=== PATIENT | male | born 1955 ===

== ENCOUNTER 2021-07-24 09:45 | Inpatient (IN) ==
[2021-07-24] MEDS ORDERED: Albuterol HFA INHALER 8 gm MDI INH PRN (13:23)
[2021-07-24] MEDS ORDERED: Furosemide 40 mg/4 ml IV VIAL IV SLOW PU ONE (13:29)
[2021-07-24] MEDS: cefTRIAXone 1 gm/50 mL NS BAG 1 GM/50 ML BAG IVPB SCH (14:02)
[2021-07-24] MEDS: Carbidopa/Levodop 25/100 MG TAB PO SCH ×2 (14:02→21:04)
[2021-07-24 15:08] LABS: ABS Lymphocytes 0.2 10^3/ul (1.0-4.8); ABS Monocytes 0.3 10^3/ul (0-0.8); ABS Neutrophils 5.2 10^3/ul (1.5-7.7); Hematocrit 41 % (42-52); Mean Corpuscular HGB Conc 34 g/dL (31-36); Mean Corpuscular Hemoglobin 32 pg (27-31); Mean Corpuscular Volume 95 fL (80-94); Mean Platelet Volume 8.3 fL (7.4-10.4); Platelet Count 156 10^3/uL (150-450); Red Blood Count 4.38 10^6 /uL (4.18-5.48); Red Cell Distribution Width 15 % (10-15); White Blood Count 5.8 10^3/uL (3.5-10.8)
[2021-07-24 15:24] LABS: Albumin/Globulin Ratio 1.2 (1-3); Calcium 7.6 mg/dL (8.6-10.3); Globulin 2.6 g/dL (2-4); Phosphorus 4.2 mg/dL (2.5-5.0); Total Bilirubin 0.9 mg/dL (0.2-1.0); Total Protein 5.6 g/dL (6.4-8.9)
[2021-07-24] MEDS: Heparin 5000 UNITS/ML 1 mL VIAL SUBCUT SCH (21:23)
[2021-07-24] MEDS ORDERED: Senna TAB 8.6 mg TAB PO PRN (23:05)
[2021-07-24] MEDS ORDERED: Polyethylene Glycol 3350 17 GM PACKET PO PRN (23:05)
[2021-07-24] MEDS ORDERED: Magnesium Hydroxide LIQ 30 ML UDC PO PRN (23:05)
[2021-07-25] MEDS: Heparin 5000 UNITS/ML 1 mL VIAL SUBCUT SCH ×3 (05:42→22:00)
[2021-07-25 06:07] LABS: Hematocrit 39 % (42-52); Hemoglobin 13.5 g/dL (14.0-18.0); Mean Corpuscular HGB Conc 35 g/dL (31-36); Mean Corpuscular Hemoglobin 33 pg (27-31); Mean Corpuscular Volume 94 fL (80-94); Mean Platelet Volume 8.6 fL (7.4-10.4); Platelet Count 153 10^3/uL (150-450); Red Blood Count 4.15 10^6 /uL (4.18-5.48); Red Cell Distribution Width 15 % (10-15); White Blood Count 9.3 10^3/uL (3.5-10.8)
[2021-07-25 06:13] LABS: ABS Lymphocytes 0.4 10^3/ul (1.0-4.8); ABS Monocytes 0.5 10^3/ul (0-0.8); ABS Neutrophils 8.2 10^3/ul (1.5-7.7); Lymphocyte % 4.6 %
[2021-07-25 06:26] LABS: Albumin 2.7 g/dL (3.2-5.2); Albumin/Globulin Ratio 1.1 (1-3); Calcium 7.7 mg/dL (8.6-10.3); Globulin 2.5 g/dL (2-4); Total Bilirubin 0.8 mg/dL (0.2-1.0); Total Protein 5.2 g/dL (6.4-8.9); eGFR CKD-EPI 95.2 (>60)
[2021-07-25] MEDS: Carbidopa/Levodop 25/100 MG TAB PO SCH ×3 (09:15→19:38)
[2021-07-25] MEDS: Remdesivir 100 mg Vial 100 MG in NS 0.9% 250 ml 230 ML IV SCH (09:28)
[2021-07-25] MEDS ORDERED: Furosemide 40 mg/4 ml IV VIAL IV SLOW PU ONE (10:53)
[2021-07-25] MEDS: cefTRIAXone 1 gm/50 mL NS BAG 1 GM/50 ML BAG IVPB SCH (15:39)
[2021-07-26] MEDS: Heparin 5000 UNITS/ML 1 mL VIAL SUBCUT SCH ×3 (05:57→22:41)
[2021-07-26] MEDS: Carbidopa/Levodop 25/100 MG TAB PO SCH ×3 (10:09→19:53)
[2021-07-26] MEDS: Remdesivir 100 mg Vial 100 MG in NS 0.9% 250 ml 230 ML IV SCH (10:13)
[2021-07-26] MEDS: Furosemide 40 mg/4 ml IV VIAL IV SCH (11:01)
[2021-07-26] MEDS ORDERED: Acetylcysteine 600mgCAP(RENAL) ONE (11:05)
[2021-07-26] MEDS: Acetylcysteine 600mgCAP(RENAL) PO SCH ×2 (11:06→22:41)
[2021-07-26 11:08] LABS: Albumin 2.9 g/dL (3.2-5.2); Albumin/Globulin Ratio 1.1 (1-3); Globulin 2.6 g/dL (2-4); Potassium 4.1 mmol/L (3.5-5.0); Total Bilirubin 0.7 mg/dL (0.2-1.0); Total Protein 5.5 g/dL (6.4-8.9); eGFR CKD-EPI 99.1 (>60)
[2021-07-26] MEDS ORDERED: Morphine 4 MG/ML VIAL (1 ml) IV ONE (11:08)
[2021-07-26 11:11] LABS: INR 1.18 (0.86-1.15)
[2021-07-26 14:04] LABS: Urine Appearance Clear; Urine Bilirubin Negative (Negative); Urine Blood Negative (Negative); Urine Color Yellow; Urine Glucose Negative (Negative); Urine Ketones Negative (Negative); Urine Nitrite Negative (Negative); Urine Protein Negative (Negative); Urine Urobilinogen Negative (Negative)
[2021-07-26] MEDS: CMC:Selenium 200 mcg TAB (NF) PO SCH (14:57)
[2021-07-26] MEDS: cefTRIAXone 1 gm/50 mL NS BAG 1 GM/50 ML BAG IVPB SCH (15:55)
[2021-07-27] MEDS: Heparin 5000 UNITS/ML 1 mL VIAL SUBCUT SCH ×3 (05:08→20:07)
[2021-07-27] MEDS: Remdesivir 100 mg Vial 100 MG in NS 0.9% 250 ml 230 ML IV SCH (08:03)
[2021-07-27] MEDS: Furosemide 40 mg/4 ml IV VIAL IV SCH (08:03)
[2021-07-27] MEDS: CMC:Selenium 200 mcg TAB (NF) PO SCH (08:06)
[2021-07-27] MEDS: Acetylcysteine 600mgCAP(RENAL) PO SCH ×2 (08:06→20:07)
[2021-07-27] MEDS: Carbidopa/Levodop 25/100 MG TAB PO SCH ×3 (08:06→20:07)
[2021-07-27] MEDS: cefTRIAXone 1 gm/50 mL NS BAG 1 GM/50 ML BAG IVPB SCH (13:44)
[2021-07-28] MEDS: Heparin 5000 UNITS/ML 1 mL VIAL SUBCUT SCH ×3 (05:49→21:37)
[2021-07-28] MEDS: Carbidopa/Levodop 25/100 MG TAB PO SCH ×3 (08:29→21:36)
[2021-07-28] MEDS: Acetylcysteine 600mgCAP(RENAL) PO SCH ×2 (08:29→21:37)
[2021-07-28] MEDS: Remdesivir 100 mg Vial 100 MG in NS 0.9% 250 ml 230 ML IV SCH (08:32)
[2021-07-28] MEDS: Furosemide 40 mg/4 ml IV VIAL IV SCH (08:32)
[2021-07-28] MEDS: CMC:Selenium 200 mcg TAB (NF) PO SCH (08:52)
[2021-07-28] MEDS: Tiotropium Brom/Olodaterol MDI INH SCH ×2 (11:10→11:50)
[2021-07-28] MEDS: Albuterol/Ipratropium NEB.SOL (2.5/0.5 MG) 3 ML NEB.SOLN INH PRN ×2 (11:52→15:23)
[2021-07-28] MEDS: Sodium Chloride(INHALANT)0.9% 5 ML NEB.SOLN INH SCH ×5 (11:52→23:48)
[2021-07-28 16:37] LABS: Calcium 8.3 mg/dL (8.6-10.3); Magnesium 2.1 mg/dL (1.9-2.7); Potassium 4.8 mmol/L (3.5-5.0); eGFR CKD-EPI 98.7 (>60)
[2021-07-28] MEDS ORDERED: Furosemide 100 mg/10 ml IV VIAL IV ONE (17:09)
[2021-07-29] MEDS ORDERED: Lorazepam PYXIS KEY PRN ×2 (01:35→08:19)
[2021-07-29] MEDS ORDERED: LORazepam 2 mg VIAL 1 ml IV PUSH ONE (01:35)
[2021-07-29] MEDS: Sodium Chloride(INHALANT)0.9% 5 ML NEB.SOLN INH SCH ×7 (03:38→23:31)
[2021-07-29] MEDS: Heparin 5000 UNITS/ML 1 mL VIAL SUBCUT SCH ×3 (06:02→22:00)
[2021-07-29] MEDS ORDERED: Furosemide 100 mg/10 ml IV VIAL IV ONE (08:09)
[2021-07-29] MEDS: Tiotropium Brom/Olodaterol MDI INH SCH (08:10)
[2021-07-29] MEDS ORDERED: LORazepam 2 mg VIAL 1 ml IV PUSH PRN (08:19)
[2021-07-29] MEDS: Acetylcysteine 600mgCAP(RENAL) PO SCH ×2 (08:25→22:24)
[2021-07-29] MEDS: Carbidopa/Levodop 25/100 MG TAB PO SCH ×3 (08:25→22:24)
[2021-07-29] MEDS: CMC:Selenium 200 mcg TAB (NF) PO SCH (08:27)
[2021-07-29 09:10] LABS: Hematocrit 44 % (42-52); Hemoglobin 15.1 g/dL (14.0-18.0); Mean Corpuscular HGB Conc 34 g/dL (31-36); Mean Corpuscular Hemoglobin 32 pg (27-31); Mean Corpuscular Volume 94 fL (80-94); Mean Platelet Volume 9.1 fL (7.4-10.4); Platelet Count 242 10^3/uL (150-450); Red Blood Count 4.71 10^6 /uL (4.18-5.48); Red Cell Distribution Width 15 % (10-15); White Blood Count 9.9 10^3/uL (3.5-10.8)
[2021-07-29 09:26] LABS: Blood Urea Nitrogen 35 mg/dL (6-24); CO2 Carbon Dioxide 34 mmol/L (22-32); Calcium 8.6 mg/dL (8.6-10.3); Chloride 99 mmol/L (101-111); Glucose 193 mg/dL (70-100); Magnesium 2.2 mg/dL (1.9-2.7); Sodium 139 mmol/L (135-145); eGFR CKD-EPI 96.2 (>60)
[2021-07-29] MEDS: Furosemide 40 mg/4 ml IV VIAL IV SCH (11:04)
[2021-07-29 12:34] LABS: Anion Gap 6 mmol/L (2-11)
[2021-07-29] MEDS ORDERED: Furosemide 40 mg/4 ml IV VIAL IV SLOW PU ONE (16:13)
[2021-07-29] MEDS: Senna TAB 8.6 mg TAB PO SCH (21:30)
[2021-07-30] MEDS: Sodium Chloride(INHALANT)0.9% 5 ML NEB.SOLN INH SCH ×3 (04:11→11:50)
[2021-07-30 05:14] LABS: Hematocrit 47 % (42-52); Mean Corpuscular HGB Conc 34 g/dL (31-36); Mean Corpuscular Hemoglobin 32 pg (27-31); Mean Corpuscular Volume 94 fL (80-94); Mean Platelet Volume 9.5 fL (7.4-10.4); Platelet Count 242 10^3/uL (150-450); Red Blood Count 5.02 10^6 /uL (4.18-5.48); Red Cell Distribution Width 15 % (10-15); White Blood Count 7.2 10^3/uL (3.5-10.8)
[2021-07-30 05:52] LABS: CO2 Carbon Dioxide 34 mmol/L (22-32); Calcium 8.7 mg/dL (8.6-10.3); Chloride 99 mmol/L (101-111); Magnesium 2.4 mg/dL (1.9-2.7); Sodium 139 mmol/L (135-145)
[2021-07-30 05:54] LABS: Anion Gap 6 mmol/L (2-11)
[2021-07-30 05:58] LABS: Blood Urea Nitrogen 42 mg/dL (6-24); Glucose 278 mg/dL (70-100); eGFR CKD-EPI 80.1 (>60)
[2021-07-30 06:27] LABS: ABS Lymphocytes 0.3 10^3/ul (1.0-4.8); ABS Monocytes 0.7 10^3/ul (0-0.8); ABS Neutrophils 6.2 10^3/ul (1.5-7.7); Lymphocyte % 4.1 %; Nucleated Red Blood Cells % 0.1
[2021-07-30 06:34] LABS: TSH Ultra Thyroid Stim Horm 0.69 mcIU/mL (0.34-5.60)
[2021-07-30] MEDS: Heparin 5000 UNITS/ML 1 mL VIAL SUBCUT SCH ×3 (07:13→21:49)
[2021-07-30] MEDS: Tiotropium Brom/Olodaterol MDI INH SCH (08:27)
[2021-07-30] MEDS: Carbidopa/Levodop 25/100 MG TAB PO SCH ×3 (09:30→20:11)
[2021-07-30] MEDS: Acetylcysteine 600mgCAP(RENAL) PO SCH ×2 (09:30→20:11)
[2021-07-30] MEDS: Polyethylene Glycol 3350 17 GM PACKET PO SCH (09:31)
[2021-07-30] MEDS: CMC:Selenium 200 mcg TAB (NF) PO SCH (09:31)
[2021-07-30] MEDS: Albuterol/Ipratropium NEB.SOL (2.5/0.5 MG) 3 ML NEB.SOLN INH PRN (11:51)
[2021-07-30 13:23] LABS: Phosphorus 3.5 mg/dL (2.5-5.0); Potassium Redraw 3.8 mmol/L (3.5-5.0)
[2021-07-30] MEDS ORDERED: Sodium Chloride(INHALANT)0.9% 5 ML NEB.SOLN INH PRN (14:58)
[2021-07-30] MEDS: Albuterol/Ipratropium NEB.SOL (2.5/0.5 MG) 3 ML NEB.SOLN INH SCH (18:58)
[2021-07-30] MEDS: Senna TAB 8.6 mg TAB PO SCH (20:12)
[2021-07-31 03:55] LABS: CO2 Carbon Dioxide 30 mmol/L (22-32); Calcium 8.3 mg/dL (8.6-10.3); Chloride 100 mmol/L (101-111); Magnesium 2.5 mg/dL (1.9-2.7); Sodium 135 mmol/L (135-145)
[2021-07-31 03:58] LABS: Anion Gap 5 mmol/L (2-11)
[2021-07-31 04:01] LABS: Blood Urea Nitrogen 43 mg/dL (6-24); Glucose 359 mg/dL (70-100); eGFR CKD-EPI 95.2 (>60)
[2021-07-31] MEDS: Albuterol/Ipratropium NEB.SOL (2.5/0.5 MG) 3 ML NEB.SOLN INH SCH ×3 (05:25→19:40)
[2021-07-31] MEDS: Heparin 5000 UNITS/ML 1 mL VIAL SUBCUT SCH ×2 (06:03→13:20)
[2021-07-31] MEDS: Tiotropium Brom/Olodaterol MDI INH SCH (07:21)
[2021-07-31] MEDS: Polyethylene Glycol 3350 17 GM PACKET PO SCH (08:31)
[2021-07-31] MEDS: Acetylcysteine 600mgCAP(RENAL) PO SCH ×2 (08:31→20:53)
[2021-07-31] MEDS: CMC:Selenium 200 mcg TAB (NF) PO SCH (08:32)
[2021-07-31] MEDS: Carbidopa/Levodop 25/100 MG TAB PO SCH ×3 (08:32→20:54)
[2021-07-31] MEDS: Insulin GLARGINE 100 un/ml 10 ml VIAL SUBCUT SCH (09:07)
[2021-07-31] MEDS: Furosemide 100 mg/10 ml IV VIAL IV SCH (09:07)
[2021-07-31 11:54] LABS: Urine Appearance Clear; Urine Bilirubin Negative (Negative); Urine Blood Negative (Negative); Urine Color Straw; Urine Glucose 1+(50 mg/dL) (Negative); Urine Ketones Negative (Negative); Urine Nitrite Negative (Negative); Urine Protein Negative (Negative); Urine Specific Gravity 1.008 (1.002-1.030); Urine Urobilinogen Negative (Negative)
[2021-07-31] MEDS: Enoxaparin 40 MG/0.4 ML SYR SUBCUT SCH (20:51)
[2021-07-31] MEDS: Senna TAB 8.6 mg TAB PO SCH (20:52)
[2021-08-01] MEDS: Albuterol/Ipratropium NEB.SOL (2.5/0.5 MG) 3 ML NEB.SOLN INH SCH ×3 (03:02→23:13)
[2021-08-01] MEDS: Furosemide 100 mg/10 ml IV VIAL IV SCH (06:29)
[2021-08-01] MEDS: Insulin GLARGINE 100 un/ml 10 ml VIAL SUBCUT SCH (08:00)
[2021-08-01] MEDS: Acetylcysteine 600mgCAP(RENAL) PO SCH ×2 (08:00→20:23)
[2021-08-01] MEDS: CMC:Selenium 200 mcg TAB (NF) PO SCH (08:00)
[2021-08-01] MEDS: Carbidopa/Levodop 25/100 MG TAB PO SCH ×2 (08:00→18:23)
[2021-08-01] MEDS: Tiotropium Brom/Olodaterol MDI INH SCH (08:35)
[2021-08-01 10:55] LABS: PCO2 Arterial 38 mmHg (35-45); PO2 Arterial 64 mmHg (80-100)
[2021-08-01] MEDS: Polyethylene Glycol 3350 17 GM PACKET PO SCH (12:30)
[2021-08-01 12:50] LABS: Blood Urea Nitrogen 47 mg/dL (6-24); CO2 Carbon Dioxide 33 mmol/L (22-32); Chloride 94 mmol/L (101-111); Glucose 411 mg/dL (70-100); Sodium 137 mmol/L (135-145)
[2021-08-01] MEDS ORDERED: Dextrose 50% Syringe 50 ml 25 GM/50 ML SYRINGE IV PUSH PRN ×2 (12:59→13:54)
[2021-08-01 13:23] LABS: Folate 11.53 ng/mL (5.90-24.80)
[2021-08-01 13:24] LABS: Vitamin B12 1017 pg/mL (180-914)
[2021-08-01 13:26] LABS: Glucose Confirmatory 401 mg/dL (70-100)
[2021-08-01 13:34] LABS: Anion Gap 10 mmol/L (2-11)
[2021-08-01 14:43] LABS: TSH Ultra Thyroid Stim Horm 0.48 mcIU/mL (0.34-5.60)
[2021-08-01] MEDS: Senna TAB 8.6 mg TAB PO SCH (20:23)
[2021-08-01] MEDS: Enoxaparin 40 MG/0.4 ML SYR SUBCUT SCH (20:25)
[2021-08-02] MEDS: Albuterol/Ipratropium NEB.SOL (2.5/0.5 MG) 3 ML NEB.SOLN INH SCH ×3 (03:15→19:36)
[2021-08-02 05:45] LABS: PCO2 Arterial 43 mmHg (35-45); PO2 Arterial 109 mmHg (80-100)
[2021-08-02 07:51] LABS: Hematocrit 49 % (42-52); Hemoglobin 16.7 g/dL (14.0-18.0); Mean Corpuscular HGB Conc 34 g/dL (31-36); Mean Corpuscular Hemoglobin 32 pg (27-31); Mean Corpuscular Volume 95 fL (80-94); Mean Platelet Volume 10.2 fL (7.4-10.4); Platelet Count 192 10^3/uL (150-450); Red Blood Count 5.16 10^6 /uL (4.18-5.48); Red Cell Distribution Width 14 % (10-15); White Blood Count 12.5 10^3/uL (3.5-10.8)
[2021-08-02 08:20] LABS: Blood Urea Nitrogen 51 mg/dL (6-24); CO2 Carbon Dioxide 34 mmol/L (22-32); Calcium 9.1 mg/dL (8.6-10.3); Chloride 99 mmol/L (101-111); Glucose 143 mg/dL (70-100); Sodium 140 mmol/L (135-145); eGFR CKD-EPI 94.2 (>60)
[2021-08-02] MEDS: Acetylcysteine 600mgCAP(RENAL) PO SCH ×2 (08:42→21:24)
[2021-08-02] MEDS: Polyethylene Glycol 3350 17 GM PACKET PO SCH (08:43)
[2021-08-02] MEDS: Insulin GLARGINE 100 un/ml 10 ml VIAL SUBCUT SCH (08:43)
[2021-08-02] MEDS: CMC:Selenium 200 mcg TAB (NF) PO SCH (08:45)
[2021-08-02] MEDS: Carbidopa/Levodop 25/100 MG TAB PO SCH ×3 (08:48→18:03)
[2021-08-02 09:51] LABS: Anion Gap 7 mmol/L (2-11)
[2021-08-02] MEDS ORDERED: Furosemide 40 mg/4 ml IV VIAL IV ONE (12:19)
[2021-08-02] MEDS ORDERED: Vancomycin 1,500 MG in NS 0.9% 250 ml 250 ML IVPB ONE (15:32)
[2021-08-02] MEDS ORDERED: Piperacillin/Tazobac ADVAN 3.375 GM in NS 0.9% 100 ml BAG 100 ML IV ONE (15:33)
[2021-08-02] MEDS ORDERED: Vancomycin per Pharmacy 1 EA NOTE FOLLOW UP SCH (16:00)
[2021-08-02] MEDS ORDERED: Zosyn per Pharmacy NOTE FOLLOW UP SCH (16:00)
[2021-08-02] MEDS: Senna TAB 8.6 mg TAB PO SCH (21:24)
[2021-08-02] MEDS: Enoxaparin 40 MG/0.4 ML SYR SUBCUT SCH (21:24)
[2021-08-02] MEDS: ZOSYN 3.375 GM Q8H per EXTENDED INFUSION IV SCH (21:38)
[2021-08-03] MEDS: Vancomycin 1,250 MG in NS 0.9% 250 ml 250 ML IVPB SCH ×2 (04:39→18:52)
[2021-08-03] MEDS: ZOSYN 3.375 GM Q8H per EXTENDED INFUSION IV SCH ×3 (06:03→21:15)
[2021-08-03 06:22] LABS: ABS Basophils 0.1 10^3/ul (0-0.2); ABS Lymphocytes 0.4 10^3/ul (1.0-4.8); ABS Monocytes 1.3 10^3/ul (0-0.8); ABS Neutrophils 11.1 10^3/ul (1.5-7.7); Hematocrit 49 % (42-52); Hemoglobin 16.3 g/dL (14.0-18.0); Mean Corpuscular HGB Conc 33 g/dL (31-36); Mean Corpuscular Hemoglobin 32 pg (27-31); Mean Corpuscular Volume 95 fL (80-94); Mean Platelet Volume 10.3 fL (7.4-10.4); Platelet Count 172 10^3/uL (150-450); Red Blood Count 5.15 10^6 /uL (4.18-5.48); Red Cell Distribution Width 15 % (10-15); White Blood Count 12.9 10^3/uL (3.5-10.8)
[2021-08-03] MEDS: Albuterol/Ipratropium NEB.SOL (2.5/0.5 MG) 3 ML NEB.SOLN INH SCH ×3 (06:22→19:36)
[2021-08-03 07:05] LABS: Calcium 8.5 mg/dL (8.6-10.3); Magnesium 2.5 mg/dL (1.9-2.7)
[2021-08-03 07:11] LABS: eGFR CKD-EPI 75.7 (>60)
[2021-08-03] MEDS: Polyethylene Glycol 3350 17 GM PACKET PO SCH (07:33)
[2021-08-03] MEDS: CMC:Selenium 200 mcg TAB (NF) PO SCH (07:52)
[2021-08-03] MEDS: Insulin GLARGINE 100 un/ml 10 ml VIAL SUBCUT SCH (07:52)
[2021-08-03] MEDS: Acetylcysteine 600mgCAP(RENAL) PO SCH ×2 (07:52→20:38)
[2021-08-03] MEDS: Carbidopa/Levodop 25/100 MG TAB PO SCH ×3 (07:54→18:52)
[2021-08-03] MEDS: Magic MouthWash2-BEN/MAAL/LIDO/NYST 240 ML BTL (alt formulation) SWISH SWAL SCH ×4 (10:36→20:39)
[2021-08-03] MEDS: Senna TAB 8.6 mg TAB PO SCH (20:38)
[2021-08-03] MEDS: Enoxaparin 40 MG/0.4 ML SYR SUBCUT SCH (20:39)
[2021-08-04] MEDS ORDERED: Vancomycin Trough Check NOTE FOLLOW UP ONE (05:30)
[2021-08-04] MEDS: Albuterol/Ipratropium NEB.SOL (2.5/0.5 MG) 3 ML NEB.SOLN INH SCH ×3 (05:31→19:59)
[2021-08-04] MEDS: ZOSYN 3.375 GM Q8H per EXTENDED INFUSION IV SCH (05:42)
[2021-08-04 05:59] LABS: Vancomycin Trough 18.7 mcg/mL; eGFR CKD-EPI 97.2 (>60)
[2021-08-04] MEDS: Vancomycin 1,250 MG in NS 0.9% 250 ml 250 ML IVPB SCH ×2 (06:38→17:57)
[2021-08-04] MEDS: Polyethylene Glycol 3350 17 GM PACKET PO SCH (10:27)
[2021-08-04] MEDS: Acetylcysteine 600mgCAP(RENAL) PO SCH ×2 (10:27→21:16)
[2021-08-04] MEDS: Carbidopa/Levodop 25/100 MG TAB PO SCH ×3 (10:27→17:21)
[2021-08-04] MEDS: Insulin GLARGINE 100 un/ml 10 ml VIAL SUBCUT SCH (10:52)
[2021-08-04] MEDS: Magic MouthWash2-BEN/MAAL/LIDO/NYST 240 ML BTL (alt formulation) SWISH SWAL SCH ×4 (10:52→21:22)
[2021-08-04] MEDS: CMC:Selenium 200 mcg TAB (NF) PO SCH (13:18)
[2021-08-04] MEDS: Senna TAB 8.6 mg TAB PO SCH (21:18)
[2021-08-04] MEDS: Enoxaparin 40 MG/0.4 ML SYR SUBCUT SCH (21:19)
[2021-08-05] MEDS: Albuterol/Ipratropium NEB.SOL (2.5/0.5 MG) 3 ML NEB.SOLN INH SCH (03:16)
[2021-08-05 05:46] LABS: Hematocrit 45 % (42-52); Hemoglobin 14.9 g/dL (14.0-18.0); Mean Corpuscular HGB Conc 33 g/dL (31-36); Mean Corpuscular Hemoglobin 32 pg (27-31); Mean Corpuscular Volume 96 fL (80-94); Mean Platelet Volume 9.9 fL (7.4-10.4); Platelet Count 135 10^3/uL (150-450); Red Blood Count 4.69 10^6 /uL (4.18-5.48); Red Cell Distribution Width 15 % (10-15); White Blood Count 13.6 10^3/uL (3.5-10.8)
[2021-08-05 06:25] LABS: Calcium 8.5 mg/dL (8.6-10.3); Potassium 3.9 mmol/L (3.5-5.0); eGFR CKD-EPI 96.9 (>60)
[2021-08-05] MEDS ORDERED: Albuterol/Ipratropium NEB.SOL (2.5/0.5 MG) 3 ML NEB.SOLN INH PRN (06:55)
[2021-08-05 07:00] LABS: ABS Eosinophils 0.1 10^3/ul (0-0.6); ABS Lymphocytes 0.7 10^3/ul (1.0-4.8); ABS Monocytes 0.9 10^3/ul (0-0.8); ABS Neutrophils 11.9 10^3/ul (1.5-7.7); Eosinophil % 0.6 %; Lymphocyte % 5.3 %
[2021-08-05] MEDS: Vancomycin 1,250 MG in NS 0.9% 250 ml 250 ML IVPB SCH ×2 (07:21→17:46)
[2021-08-05] MEDS: Polyethylene Glycol 3350 17 GM PACKET PO SCH (08:02)
[2021-08-05] MEDS: CMC:Selenium 200 mcg TAB (NF) PO SCH (08:03)
[2021-08-05] MEDS: Acetylcysteine 600mgCAP(RENAL) PO SCH ×2 (08:04→22:34)
[2021-08-05] MEDS: Carbidopa/Levodop 25/100 MG TAB PO SCH ×3 (09:11→17:46)
[2021-08-05] MEDS: Insulin GLARGINE 100 un/ml 10 ml VIAL SUBCUT SCH ×2 (09:24→22:33)
[2021-08-05] MEDS: Magic MouthWash2-BEN/MAAL/LIDO/NYST 240 ML BTL (alt formulation) SWISH SWAL SCH ×4 (09:36→22:50)
[2021-08-05 14:45] LABS: Albumin 2.8 g/dL (3.4-4.7); Albumin/Globulin Ratio 0.71; Gamma Globulin 1.5 g/dL (0.6-1.6); Total Protein(PEP) 6.6 g/dL (6.3 - 7.9)
[2021-08-05] MEDS ORDERED: Furosemide 40 mg/4 ml IV VIAL IV SLOW PU ONE (16:03)
[2021-08-05] MEDS: Senna TAB 8.6 mg TAB PO SCH (22:34)
[2021-08-05] MEDS: Enoxaparin 40 MG/0.4 ML SYR SUBCUT SCH (22:34)
[2021-08-06 04:40] LABS: Hematocrit 42 % (42-52); Hemoglobin 13.7 g/dL (14.0-18.0); Mean Corpuscular HGB Conc 33 g/dL (31-36); Mean Corpuscular Hemoglobin 32 pg (27-31); Mean Corpuscular Volume 96 fL (80-94); Mean Platelet Volume 10.4 fL (7.4-10.4); Platelet Count 127 10^3/uL (150-450); Red Blood Count 4.34 10^6 /uL (4.18-5.48); Red Cell Distribution Width 15 % (10-15); White Blood Count 11.1 10^3/uL (3.5-10.8)
[2021-08-06] MEDS ORDERED: Furosemide 40 mg/4 ml IV VIAL IV SLOW PU ONE (04:46)
[2021-08-06 05:03] LABS: ABS Eosinophils 0.1 10^3/ul (0-0.6); ABS Lymphocytes 0.6 10^3/ul (1.0-4.8); ABS Monocytes 1.1 10^3/ul (0-0.8); ABS Neutrophils 9.3 10^3/ul (1.5-7.7); Eosinophil % 0.5 %; Lymphocyte % 5.8 %; Nucleated Red Blood Cells % 0.1
[2021-08-06] MEDS: Vancomycin 1,250 MG in NS 0.9% 250 ml 250 ML IVPB SCH ×2 (05:05→18:08)
[2021-08-06 05:11] LABS: Albumin 2.8 g/dL (3.2-5.2); Albumin/Globulin Ratio 1.2 (1-3); Calcium 8.1 mg/dL (8.6-10.3); Globulin 2.4 g/dL (2-4); Magnesium 2.1 mg/dL (1.9-2.7); Potassium 3.7 mmol/L (3.5-5.0); Total Bilirubin 1.3 mg/dL (0.2-1.0); Total Protein 5.2 g/dL (6.4-8.9)
[2021-08-06] MEDS: Polyethylene Glycol 3350 17 GM PACKET PO SCH (08:44)
[2021-08-06] MEDS: Acetylcysteine 600mgCAP(RENAL) PO SCH ×2 (08:46→21:23)
[2021-08-06] MEDS: CMC:Selenium 200 mcg TAB (NF) PO SCH (08:46)
[2021-08-06] MEDS: Magic MouthWash2-BEN/MAAL/LIDO/NYST 240 ML BTL (alt formulation) SWISH SWAL SCH ×2 (08:47→15:34)
[2021-08-06] MEDS: Carbidopa/Levodop 25/100 MG TAB PO SCH ×3 (08:51→17:16)
[2021-08-06] MEDS ORDERED: Benzocaine/Menthol LOZ PO PRN (09:52)
[2021-08-06] MEDS ORDERED: Iohexol 300 (CONTRAST) 10 ML SDV IV ONE (11:38)
[2021-08-06] MEDS: Enoxaparin 40 MG/0.4 ML SYR SUBCUT SCH (21:22)
[2021-08-06] MEDS: Senna TAB 8.6 mg TAB PO SCH (21:23)
[2021-08-06] MEDS: Insulin GLARGINE 100 un/ml 10 ml VIAL SUBCUT SCH (21:23)
[2021-08-07 04:43] LABS: Hematocrit 40 % (42-52); Hemoglobin 13.2 g/dL (14.0-18.0); Mean Corpuscular HGB Conc 33 g/dL (31-36); Mean Corpuscular Hemoglobin 32 pg (27-31); Mean Corpuscular Volume 95 fL (80-94); Mean Platelet Volume 9.4 fL (7.4-10.4); Platelet Count 129 10^3/uL (150-450); Red Blood Count 4.19 10^6 /uL (4.18-5.48); Red Cell Distribution Width 15 % (10-15); White Blood Count 8.7 10^3/uL (3.5-10.8)
[2021-08-07 05:11] LABS: ABS Eosinophils 0.1 10^3/ul (0-0.6); ABS Lymphocytes 0.4 10^3/ul (1.0-4.8); ABS Monocytes 0.9 10^3/ul (0-0.8); ABS Neutrophils 7.4 10^3/ul (1.5-7.7); Eosinophil % 0.9 %; Lymphocyte % 4.9 %; Nucleated Red Blood Cells % 0.1
[2021-08-07 05:18] LABS: Calcium 8.3 mg/dL (8.6-10.3); Magnesium 2.1 mg/dL (1.9-2.7); Potassium 3.6 mmol/L (3.5-5.0); eGFR CKD-EPI 102.5 (>60)
[2021-08-07] MEDS ORDERED: Vancomycin Trough Check NOTE FOLLOW UP ONE (05:30)
[2021-08-07] MEDS: Vancomycin 1,250 MG in NS 0.9% 250 ml 250 ML IVPB SCH (05:49)
[2021-08-07] MEDS: CMC:Selenium 200 mcg TAB (NF) PO SCH (07:46)
[2021-08-07] MEDS: Acetylcysteine 600mgCAP(RENAL) PO SCH ×2 (07:47→22:24)
[2021-08-07] MEDS: Polyethylene Glycol 3350 17 GM PACKET PO SCH (07:47)
[2021-08-07] MEDS: Carbidopa/Levodop 25/100 MG TAB PO SCH ×4 (07:48→22:24)
[2021-08-07 13:47] LABS: HIV 4th Generation Nonreactive (Nonreactive)
[2021-08-07] MEDS: Enoxaparin 40 MG/0.4 ML SYR SUBCUT SCH (22:23)
[2021-08-08] MEDS ORDERED: Vancomycin Random Level NOTE FOLLOW UP ONE (06:00)
[2021-08-08 06:30] LABS: Hematocrit 37 % (42-52); Hemoglobin 12.5 g/dL (14.0-18.0); Mean Corpuscular HGB Conc 34 g/dL (31-36); Mean Corpuscular Hemoglobin 32 pg (27-31); Mean Corpuscular Volume 95 fL (80-94); Platelet Count 151 10^3/uL (150-450); Red Blood Count 3.95 10^6 /uL (4.18-5.48); Red Cell Distribution Width 15 % (10-15)
[2021-08-08 07:27] LABS: Calcium 8.4 mg/dL (8.6-10.3); Magnesium 2.1 mg/dL (1.9-2.7); Potassium 3.8 mmol/L (3.5-5.0); Vancomycin Random 14.4 mcg/mL; eGFR CKD-EPI 104.4 (>60)
[2021-08-08 08:27] LABS: ABS Basophils 0.1 10^3/ul (0-0.2); ABS Lymphocytes 0.4 10^3/ul (1.0-4.8); ABS Monocytes 1.2 10^3/ul (0-0.8); ABS Neutrophils 10.3 10^3/ul (1.5-7.7); Eosinophil % 0.4 %; Lymphocyte % 3.6 %
[2021-08-08] MEDS: Polyethylene Glycol 3350 17 GM PACKET PO SCH (09:46)
[2021-08-08] MEDS: Carbidopa/Levodop 25/100 MG TAB PO SCH ×3 (11:30→20:25)
[2021-08-08] MEDS: CMC:Selenium 200 mcg TAB (NF) PO SCH (17:53)
[2021-08-08] MEDS: Acetylcysteine 600mgCAP(RENAL) PO SCH (17:53)
[2021-08-08] MEDS: Enoxaparin 40 MG/0.4 ML SYR SUBCUT SCH (20:24)
[2021-08-09] MEDS ORDERED: Morphine 4 MG/ML VIAL (1 ml) IV ONE (07:45)
[2021-08-09] MEDS: Polyethylene Glycol 3350 17 GM PACKET PO SCH (07:53)
[2021-08-09] MEDS: Carbidopa/Levodop 25/100 MG TAB PO SCH ×3 (07:53→21:26)
[2021-08-09] MEDS ORDERED: Iohexol 350 (CONTRAST) 500 ML MDV IV ONE (08:25)
[2021-08-09] MEDS: Pantoprazole VIAL 40 MG VIAL IV SCH (09:39)
[2021-08-09] MEDS ORDERED: Lorazepam PYXIS KEY PRN (11:01)
[2021-08-09] MEDS ORDERED: Furosemide 40 mg/4 ml IV VIAL IV ONE (11:12)
[2021-08-09] MEDS: LORazepam 2 mg VIAL 1 ml IV PUSH PRN ×2 (11:20→19:04)
[2021-08-09 11:57] LABS: PCO2 Arterial 55 mmHg (35-45); PO2 Arterial 71 mmHg (80-100)
[2021-08-09 12:46] LABS: Hematocrit 39 % (42-52); Hemoglobin 13.1 g/dL (14.0-18.0); Mean Corpuscular HGB Conc 33 g/dL (31-36); Mean Corpuscular Hemoglobin 32 pg (27-31); Mean Corpuscular Volume 96 fL (80-94); Mean Platelet Volume 9.5 fL (7.4-10.4); Platelet Count 155 10^3/uL (150-450); Red Blood Count 4.11 10^6 /uL (4.18-5.48); Red Cell Distribution Width 15 % (10-15); White Blood Count 14.9 10^3/uL (3.5-10.8)
[2021-08-09 13:09] LABS: Albumin 2.8 g/dL (3.2-5.2); Albumin/Globulin Ratio 1.1 (1-3); C Reactive Protein 340.98 mg/L (<8.01); Calcium 8.5 mg/dL (8.6-10.3); Globulin 2.6 g/dL (2-4); Magnesium 2.1 mg/dL (1.9-2.7); Potassium 4.4 mmol/L (3.5-5.0); Total Bilirubin 1.2 mg/dL (0.2-1.0); Total Protein 5.4 g/dL (6.4-8.9); eGFR CKD-EPI 89.4 (>60)
[2021-08-09 13:14] LABS: ABS Eosinophils 0.1 10^3/ul (0-0.6); ABS Lymphocytes 0.2 10^3/ul (1.0-4.8); ABS Monocytes 0.6 10^3/ul (0-0.8); ABS Neutrophils 14.1 10^3/ul (1.5-7.7); Eosinophil % 0.4 %; Lymphocyte % 1.4 %
[2021-08-09] MEDS: methylPREDNISolone 125 mg 2 ML VIAL IV SCH (13:38)
[2021-08-09] MEDS: Enoxaparin 40 MG/0.4 ML SYR SUBCUT SCH (21:25)
[2021-08-10] MEDS: methylPREDNISolone 125 mg 2 ML VIAL IV SCH ×3 (01:34→23:00)
[2021-08-10 05:32] LABS: ABS Lymphocytes 0.2 10^3/ul (1.0-4.8); ABS Monocytes 0.6 10^3/ul (0-0.8); ABS Neutrophils 13.4 10^3/ul (1.5-7.7); Hematocrit 38 % (42-52); Hemoglobin 12.3 g/dL (14.0-18.0); Lymphocyte % 1.1 %; Mean Corpuscular HGB Conc 33 g/dL (31-36); Mean Corpuscular Hemoglobin 32 pg (27-31); Mean Corpuscular Volume 97 fL (80-94); Mean Platelet Volume 10.1 fL (7.4-10.4); Nucleated Red Blood Cells % 0.1; Platelet Count 184 10^3/uL (150-450); Red Blood Count 3.88 10^6 /uL (4.18-5.48); Red Cell Distribution Width 15 % (10-15); White Blood Count 14.1 10^3/uL (3.5-10.8)
[2021-08-10 05:47] LABS: Albumin 2.9 g/dL (3.2-5.2); Albumin/Globulin Ratio 0.9 (1-3); Globulin 3.4 g/dL (2-4); Magnesium 2.3 mg/dL (1.9-2.7); Phosphorus 5.1 mg/dL (2.5-5.0); Total Bilirubin 0.9 mg/dL (0.2-1.0); Total Protein 6.3 g/dL (6.4-8.9)
[2021-08-10 05:49] LABS: Potassium 5.2 mmol/L (3.5-5.0)
[2021-08-10] MEDS: Pantoprazole VIAL 40 MG VIAL IV SCH (07:34)
[2021-08-10] MEDS: Polyethylene Glycol 3350 17 GM PACKET PO SCH (09:16)
[2021-08-10] MEDS: Carbidopa/Levodop 25/100 MG TAB PO SCH ×3 (09:17→21:56)
[2021-08-10] MEDS: NORMOSOL-R pH 7.4 1000 mL BAG 1,000 ML IV SCH ×2 (15:29→21:55)
[2021-08-10] MEDS: Enoxaparin 40 MG/0.4 ML SYR SUBCUT SCH (21:56)
[2021-08-10] MEDS: LORazepam 2 mg VIAL 1 ml IV PUSH PRN (23:01)
[2021-08-11] MEDS: LORazepam 2 mg VIAL 1 ml IV PUSH PRN (07:33)
[2021-08-11] MEDS ORDERED: Succinylcholine 200 mg VIAL 20 mg/ml 10 ml VIAL (200 mg) ONE (07:50)
[2021-08-11] MEDS ORDERED: Rocuronium 50 mg VIAL 10 mg/ml 5 ml VIAL (50 mg) ONE (07:50)
[2021-08-11] MEDS: Pantoprazole VIAL 40 MG VIAL IV SCH (07:52)
[2021-08-11] MEDS: Polyethylene Glycol 3350 17 GM PACKET PO SCH (07:53)
[2021-08-11] MEDS: Carbidopa/Levodop 25/100 MG TAB PO SCH ×3 (07:53→20:33)
[2021-08-11 08:09] LABS: Hematocrit 35 % (42-52); Hemoglobin 11.4 g/dL (14.0-18.0); Mean Corpuscular HGB Conc 33 g/dL (31-36); Mean Corpuscular Hemoglobin 32 pg (27-31); Mean Corpuscular Volume 97 fL (80-94); Mean Platelet Volume 9.8 fL (7.4-10.4); Platelet Count 164 10^3/uL (150-450); Red Blood Count 3.63 10^6 /uL (4.18-5.48); Red Cell Distribution Width 15 % (10-15)
[2021-08-11 08:42] LABS: ABS Basophils 0.2 10^3/ul (0-0.2); ABS Lymphocytes 0.2 10^3/ul (1.0-4.8); ABS Monocytes 0.5 10^3/ul (0-0.8); ABS Neutrophils 12.1 10^3/ul (1.5-7.7); Lymphocyte % 1.4 %; Nucleated Red Blood Cells % 0.1
[2021-08-11 08:54] LABS: Albumin 2.6 g/dL (3.2-5.2); Albumin/Globulin Ratio 0.9 (1-3); Calcium 8.4 mg/dL (8.6-10.3); Globulin 2.8 g/dL (2-4); Magnesium 2.7 mg/dL (1.9-2.7); Total Bilirubin 0.8 mg/dL (0.2-1.0); Total Protein 5.4 g/dL (6.4-8.9); eGFR CKD-EPI 62.3 (>60)
[2021-08-11 08:55] LABS: Calcium 8.3 mg/dL (8.6-10.3); Magnesium 2.7 mg/dL (1.9-2.7); Phosphorus 4.4 mg/dL (2.5-5.0); eGFR CKD-EPI 62.3 (>60)
[2021-08-11 09:07] LABS: Potassium 5.1 mmol/L (3.5-5.0)
[2021-08-11 09:08] LABS: Potassium 5.1 mmol/L (3.5-5.0)
[2021-08-11] MEDS ORDERED: Norepinephrine 16MCG/ML BAGD5W 4,000 MCG/250 ML BAG IV ONE (09:28)
[2021-08-11] MEDS ORDERED: Propofol 10 mg/ml 100 ML BTL 100 ML ONE (09:35)
[2021-08-11] MEDS: Propofol 10 mg/ml 100 ML BTL 100 ML IV SCH ×4 (09:40→21:43)
[2021-08-11] MEDS: methylPREDNISolone 125 mg 2 ML VIAL IV SCH (11:40)
[2021-08-11] MEDS ORDERED: Sulfamethox/Trimethoprim DS TAB 800/160 mg PO SCH (12:00)
[2021-08-11] MEDS ORDERED: Sulfamethoxazole/Trimeth IV 0 MG in D5W 500 ml BAG 500 ML IVPB SCH (12:00)
[2021-08-11] MEDS: Sulfamethoxazole/Trimeth IV 500 MG in D5W 500 ml BAG 500 ML IVPB SCH ×2 (13:01→20:13)
[2021-08-11] MEDS: Chlorhexidine MOUTHWASH 0.12% 15 ML UDC SWISH SPIT SCH ×3 (13:01→20:51)
[2021-08-11 13:03] LABS: PCO2 Arterial 60 mmHg (35-45); PO2 Arterial 69 mmHg (80-100)
[2021-08-11] MEDS: fentaNYL 100 mcg/2 ml 50 MCG/ML VIAL IV SLOW PU PRN ×2 (14:00→23:29)
[2021-08-11] MEDS ORDERED: Norepinephrine 16MCG/ML BAG NS 4,000 MCG/250 ML BAG IV SCH (16:00)
[2021-08-11] MEDS ORDERED: NS 0.9% 500 ML @ Wide Open(Bolus) 500ml IV ONE ×2 (16:00)
[2021-08-11] MEDS ORDERED: Cisatracurium 100 MG in NS 0.9% 250 ml 200 ML IV SCH (18:00)
[2021-08-11] MEDS: NORMOSOL-R pH 7.4 1000 mL BAG 1,000 ML IV SCH (18:39)
[2021-08-11] MEDS: Enoxaparin 40 MG/0.4 ML SYR SUBCUT SCH (20:38)
[2021-08-12] MEDS ORDERED: Dextrose 50% Syringe 50 ml 25 GM/50 ML SYRINGE IV PUSH PRN (00:08)
[2021-08-12] MEDS: methylPREDNISolone 125 mg 2 ML VIAL IV SCH ×2 (00:15→10:59)
[2021-08-12] MEDS: Chlorhexidine MOUTHWASH 0.12% 15 ML UDC SWISH SPIT SCH ×6 (00:17→23:40)
[2021-08-12] MEDS: Propofol 10 mg/ml 100 ML BTL 100 ML IV SCH ×8 (01:40→23:23)
[2021-08-12] MEDS: LORazepam 2 mg VIAL 1 ml IV PUSH PRN (01:46)
[2021-08-12 04:23] LABS: Hematocrit 30 % (42-52); Mean Corpuscular HGB Conc 33 g/dL (31-36); Mean Corpuscular Hemoglobin 32 pg (27-31); Mean Corpuscular Volume 97 fL (80-94); Platelet Count 147 10^3/uL (150-450); Red Blood Count 3.13 10^6 /uL (4.18-5.48); Red Cell Distribution Width 15 % (10-15); White Blood Count 10.8 10^3/uL (3.5-10.8)
[2021-08-12] MEDS: Sulfamethoxazole/Trimeth IV 500 MG in D5W 500 ml BAG 500 ML IVPB SCH ×3 (04:28→20:02)
[2021-08-12 04:44] LABS: Calcium 7.5 mg/dL (8.6-10.3); Macrocytosis 1+; Magnesium 2.8 mg/dL (1.9-2.7); Phosphorus 3.5 mg/dL (2.5-5.0); Potassium 4.5 mmol/L (3.5-5.0)
[2021-08-12 04:45] LABS: Anisocytosis 1+; Basophilic Stippling 1+; Polychromasia 1+
[2021-08-12 04:46] LABS: ABS Lymphocytes 0.2 10^3/ul (1.0-4.8); ABS Monocytes 0.6 10^3/ul (0-0.8); Lymphocyte % 1.6 %; Nucleated Red Blood Cells % 0.2
[2021-08-12] MEDS: Pantoprazole VIAL 40 MG VIAL IV SCH (07:20)
[2021-08-12] MEDS: Carbidopa/Levodop 25/100 MG TAB PO SCH ×3 (07:20→20:04)
[2021-08-12] MEDS: Polyethylene Glycol 3350 17 GM PACKET PO SCH (07:20)
[2021-08-12] MEDS: NORMOSOL-R pH 7.4 1000 mL BAG 1,000 ML IV SCH (08:41)
[2021-08-12] MEDS ORDERED: Insulin GLARGINE 100 un/ml 10 ml VIAL SUBCUT SCH (09:00)
[2021-08-12 09:25] LABS: PCO2 Arterial 67 mmHg (35-45); PO2 Arterial 80 mmHg (80-100)
[2021-08-12] MEDS ORDERED: Norepinephrine 16MCG/ML BAG NS 4,000 MCG/250 ML BAG IV SCH (09:49)
[2021-08-12] MEDS: Saline FLUSH-CENTRAL 10 ML SYRINGE CENT\\PICC SCH ×2 (10:57→23:41)
[2021-08-12] MEDS: Acetylcysteine 600mgCAP(RENAL) PO SCH ×2 (10:59→20:04)
[2021-08-12] MEDS ORDERED: Anidulafungin 100 MG in NS 0.9% 100 ml BAG 100 ML IVPB SCH (14:00)
[2021-08-12] MEDS ORDERED: Anidulafungin 200 MG in NS 0.9% 200 ML IVPB ONE (15:00)
[2021-08-12] MEDS ORDERED: Norepinephrine 16MCG/ML BAGD5W 4,000 MCG/250 ML BAG IV ONE (15:49)
[2021-08-12] MEDS: Norepinephrine 16MCG/ML BAGD5W 4,000 MCG/250 ML BAG IV SCH (15:50)
[2021-08-12] MEDS ORDERED: PHENYLEPHRINE DRIP IVPREMIX 50 MG/250 ML BAG IV SCH (19:00)
[2021-08-12] MEDS: Enoxaparin 40 MG/0.4 ML SYR SUBCUT SCH (20:04)
[2021-08-12] MEDS: PHENYLEPHRINE DRIP IVPREMIX 50 MG/250 ML BAG IV SCH (23:24)
[2021-08-13] MEDS: methylPREDNISolone 125 mg 2 ML VIAL IV SCH ×2 (00:44→12:25)
[2021-08-13] MEDS: Norepinephrine 16MCG/ML BAGD5W 4,000 MCG/250 ML BAG IV SCH ×4 (00:50→13:00)
[2021-08-13] MEDS: Chlorhexidine MOUTHWASH 0.12% 15 ML UDC SWISH SPIT SCH ×6 (03:20→20:33)
[2021-08-13] MEDS: PHENYLEPHRINE DRIP IVPREMIX 50 MG/250 ML BAG IV SCH ×5 (03:27→18:33)
[2021-08-13] MEDS: Sulfamethoxazole/Trimeth IV 500 MG in D5W 500 ml BAG 500 ML IVPB SCH ×3 (04:24→20:28)
[2021-08-13 04:53] LABS: Hematocrit 30 % (42-52); Hemoglobin 10.1 g/dL (14.0-18.0); Mean Corpuscular HGB Conc 33 g/dL (31-36); Mean Corpuscular Hemoglobin 32 pg (27-31); Mean Corpuscular Volume 96 fL (80-94); Mean Platelet Volume 9.4 fL (7.4-10.4); Platelet Count 105 10^3/uL (150-450); Red Blood Count 3.15 10^6 /uL (4.18-5.48); Red Cell Distribution Width 15 % (10-15); White Blood Count 9.9 10^3/uL (3.5-10.8)
[2021-08-13 05:23] LABS: Calcium 6.8 mg/dL (8.6-10.3); Magnesium 2.6 mg/dL (1.9-2.7); Phosphorus 4.2 mg/dL (2.5-5.0); eGFR CKD-EPI 39.4 (>60)
[2021-08-13 05:32] LABS: Potassium 5.3 mmol/L (3.5-5.0)
[2021-08-13 05:33] LABS: ABS Lymphocytes 0.2 10^3/ul (1.0-4.8); ABS Monocytes 0.7 10^3/ul (0-0.8); ABS Nucleated RBC 0.1 10^3/ul; Lymphocyte % 1.6 %; Nucleated Red Blood Cells % 0.7
[2021-08-13 05:41] LABS: RBC Morphology Normal (Normal)
[2021-08-13] MEDS: Propofol 10 mg/ml 100 ML BTL 100 ML IV SCH ×6 (05:46→19:46)
[2021-08-13] MEDS ORDERED: NS 0.9% 250 ml 250 ML ONE (06:29)
[2021-08-13] MEDS ORDERED: Calcium Gluconate 3 GM in NS 0.9% 250 ml 250 ML IV ONE (06:30)
[2021-08-13] MEDS ORDERED: Dextrose 50% Syringe 50 ml 25 GM/50 ML SYRINGE IV PUSH ONE (08:25)
[2021-08-13] MEDS ORDERED: SODIUM ZIRCONIUM CYCLOSILICATE 10 GM PACKET PO ONE (08:26)
[2021-08-13] MEDS: Pantoprazole VIAL 40 MG VIAL IV SCH (08:34)
[2021-08-13] MEDS: Carbidopa/Levodop 25/100 MG TAB FEED TUBE SCH ×3 (08:35→20:33)
[2021-08-13] MEDS: Acetylcysteine 600mgCAP(RENAL) SCH ×2 (08:35→20:32)
[2021-08-13] MEDS: Polyethylene Glycol 3350 17 GM PACKET PO SCH (08:35)
[2021-08-13] MEDS: Saline FLUSH-CENTRAL 10 ML SYRINGE CENT\\PICC SCH (08:38)
[2021-08-13] MEDS ORDERED: Polyethylene Glycol 3350 17 GM PACKET FEED TUBE SCH (08:43)
[2021-08-13] MEDS ORDERED: Senna TAB 8.6 mg TAB FEED TUBE PRN (08:44)
[2021-08-13] MEDS ORDERED: Insulin GLARGINE 100 un/ml 10 ml VIAL SUBCUT SCH (09:00)
[2021-08-13 11:56] LABS: Glucose Confirmatory 437 mg/dL (70-100)
[2021-08-13] MEDS ORDERED: Anidulafungin 100 MG in NS 0.9% 100 ml BAG 100 ML IVPB SCH (14:00)
[2021-08-13] MEDS: Norepinephrine *QUAD STRENGTH* 16 mg/250 mL NS per protocol IV SCH ×2 (14:41→20:29)
[2021-08-13] MEDS: Enoxaparin 40 MG/0.4 ML SYR SUBCUT SCH (20:32)
[2021-08-13 23:02] VITALS: BP 38/26
== END 2021-08-13 22:36 | disposition expired | DRG 208 ==
LOC: ICU 11:57 → SUATTDRO 11:57 → ICU 07-26 10:48
PROVIDERS: ADMIT Internal Medicine Critical Care Medicine; ATTEND Hospitalist